=== PATIENT | female | born 1980 | race Caucasian/White ===

== ENCOUNTER 2018-06-10 16:27 | Emergency (ER) | payer SELFPAY ==
[~2018-06-10] VITALS: Ht 167.6 cm; Wt 75.0 kg
[2018-06-10 17:15] VITALS: BP 123/86
== END 2018-06-10 17:34 | disposition home or self-care (01) ==
LOC: ER 16:30
DX: S61.411A Laceration without foreign body of right hand, initial encounter (principal); W25.XXXA Contact with sharp glass, initial encounter; Y93.89 Activity, other specified; Y92.89 Other specified places as the place of occurrence of the external cause; R03.0 Elevated blood-pressure reading, without diagnosis of hypertension
CPT/HCPCS: 12001; 73130; 99283

== ENCOUNTER 2019-08-26 10:57 | Emergency (ER) | payer BC, OTHER ==
[~2019-08-26] VITALS: Ht 165.1 cm; Wt 60.0 kg
[2019-08-26] MEDS ORDERED: IPRATROPIUM BROMIDE (0.02%) 0.5MG/2.5ML NEB HHN STA (11:19)
[2019-08-26] MEDS ORDERED: ALBUTEROL (0.083%) 2.5MG/3ML NEB HHN STA (11:19)
[2019-08-26] MEDS ORDERED: ALBUTEROL 6.7GM HFA INHALER ORI ONE (12:00)
[2019-08-26 12:25] VITALS: BP 113/67
== END 2019-08-26 13:30 | disposition home or self-care (01) ==
LOC: ER 13:17
DX: J20.9 Acute bronchitis, unspecified (principal)
CPT/HCPCS: 71045; 94640; 99283; J7611; Z7610